=== PATIENT | male | born 1990 | race Two or more races ===

== ENCOUNTER 2018-01-15 03:23 | Emergency (ER) | payer SELFPAY ==
[~2018-01-15] VITALS: Ht 167.6 cm; Wt 59.0 kg
[2018-01-15 03:39] VITALS: BP 0/0
--- NOTE | 2018-01-15 05:27 | Emergency Room Report ---
History of Present Illness General Chief Complaint: Medical Clearance Source: Patient Present Illness HPI Patient refused medical screening exam Allergies: Coded Allergies: UNABLE TO ASSESS (Unverified , 01/15/18) Nursing Documentation-[facility] Past Medical History: No Stated History Physical Exam Vital Signs Date Time Temp Pulse Resp B/P (MAP) Pulse Ox O2 Delivery O2 Flow Rate FiO2 01/15/18 03:27 Room Air 01/15/18 03:39 0/0 Medical Decision Making Diagnostic Impression: Primary Impression: Refusal of treatment Last Vital Signs Date Time Temp Pulse Resp B/P (MAP) Pulse Ox O2 Delivery O2 Flow Rate FiO2 01/15/18 03:39 0/0 Room Air Disposition: AGAINST MEDICAL ADVICE Condition: Unknown Scripts Unable to Obtain Active Prescriptions or Reported Meds Referrals: NOT CHOSEN IPA/,REFERRING (PCP) Patient Instructions: Medical Screening Exam Additional Instructions: You refused medical treatment. Return if you change your mind regarding evaluation Chris Garcia MD Jan 15, 2018 05:27
== END 2018-01-15 03:41 ==
LOC: EMR 03:34
DX: Z53.29 Procedure and treatment not carried out because of patient's decision for other reasons (principal)
CPT/HCPCS: 99281